=== PATIENT | male | born 1995 | race Caucasian/White ===

== ENCOUNTER 2017-12-21 04:43 | Emergency (ER) | payer BC, SELFPAY ==
[2017-12-21 04:44] VITALS: BP 153/87; PULSE 78; RESP 20; TEMP 36.6; O2SAT 98; BMI 24.5
--- NOTE | 2017-12-21 04:48 | CT_ITS ---
STUDY: CT ABDOMEN AND PELVIS WITH CONTRAST REASON FOR EXAM: Male, 22 years old. Rule out appendicitis. RADIATION DOSAGE (If Supplied By Facility): CTDIvol = ( 7.75 ) mGy, DLP = ( 819.57 ) mGycm TECHNIQUE: Transaxial images were obtained from the dome of the diaphragm to the symphysis pubis with oral contrast. 100 ml of Isovue 300 contrast was administered. Sagittal and coronal images were reconstructed. Individualized dose optimization techniques were used for this CT. COMPARISON: None. FINDINGS: The visualized lung bases are unremarkable. The visualized portions of the heart are within normal limits. Normal liver. Normal gallbladder and extrahepatic biliary system. Normal spleen. Normal pancreas. Normal bilateral adrenal glands. Normal right kidney. Normal left kidney. Normal visualized stomach. Oral contrast has not reached into the distal small intestine and entire colon. Suspect segmental mild wall thickening of the terminal ileum. Moderately large amount of fecal debris is seen in the colon. The appendix is visualized and appears normal. Normal abdominal aorta. Normal inferior vena cava. There are multiple small periaortic and central mesenteric reactive lymph nodes present. Normal urinary bladder. Normal visualized prostate gland. Normal abdominal wall. Normal osseous structures. CT/Abdomen/Pelvis WITH Contrast IMPRESSION: 1. Normal-appearing appendix. No evidence of acute appendicitis. 2. Suspect mild terminal ileitis with wall thickening, in the appropriate clinical context. 3. Increased colonic stool volume. Electronically Signed: Apple Barron MD at 7:38 EDT Tel , Service support ,
--- NOTE | 2017-12-21 04:50 | ED.DCSUM_ITS ---
- ER Visit Summary Date of Service: 12/21/17 Chief Complaint: Abdominal pain History of Present Illness: The patient is a 22 M presents to the emergency department with abdominal pain. The patient's been having intermittent abdominal pain for almost a year. He states that he has had some upper abdominal pain with nausea and vomiting. He has seen his physician thought it may been secondary to anxiety. He was started on sertraline which really has not changed the symptoms. He actually had an outpatient gallbladder ultrasound which was normal. He is scheduled for a HIDA scan next week and have an upper endoscopy. He states that he began to have a different pain at about 1 this morning. He states it was around his bellybutton which is in a different location. He states he woke up and vomited and went back to sleep. He states the pain began to migrate to his right lower quadrant. He states this is very different than what is been dealing with. He denies any fevers but does admit to chills. The last time he ate was last evening. He has had no diarrhea. There was no history of Crohn's disease or ulcerative colitis. He has no prior history of abdominal surgery. Physical Examination: Vital signs reviewed General: Well-nourished, well-developed Head: Normocephalic, atraumatic Eyes: Pupils equal and reactive, extraocular muscles intact Neck, supple, no lymphadenopathy Heart: Regular rate and rhythm Respiratory: No distress, clear bilaterally Abdomen: Soft, tender in the right lower quadrant with voluntary guarding, nondistended, no peritoneal signs Back: Nontender Extremities: Nontender, no edema, no cords Skin: Normal color no rash Neuro: Alert and oriented, no focal or lateralizing deficits Test Results: [] Emergency Department Course and Treatment: Clinically, the patient symptoms are concerning for acute appendicitis. He has had intermittent abdominal pain for year, but states this is different. He has exam findings that are consistent with acute appendicitis. IV is established. Patient is given analgesics, antiemetics, and screening labs are obtained. These are unremarkable. The patient does have improvement of his pain. Patient will undergo CT of the abdomen and pelvis with p.o. and IV contrast. This will be signed out to oncoming physician for reevaluation after completion of workup. Treatment Plan: [] Disposition: Pending Impression: 1. Right lower quadrant abdominal pain This note was generated with Dragon dictation software. It may contain incorrect words, spelling, and punctuation that were not noted in review of the chart prior to signing ED Disposition - Plan for ED Patient: Chief Complaint: Abd Pain Referrals: Ila Cheng, [employer] [Primary Care Provider] -
[2017-12-21] MEDS: Morphine 4 MG/ML Syringe IV (05:04)
[2017-12-21] MEDS: 0.9% Normal Saline 1,000 ML 1000 ML IV (05:04)
[2017-12-21 05:13] LABS: Bacteria 0 SEEN /hpf (None Seen); Mucous, Urine 0 SEEN /hpf (<or=2+); Red Blood Cells-Urine 0 SEEN /hpf (0-5); Squamous Epithelial Cells - UA 0 SEEN /hpf (0-5); White Blood Cells 0 SEEN /hpf (0-5)
[2017-12-21 05:15] LABS: Absolute Lymphocyte Count 2.03 X10^3/ul (0.83-4.51); Absolute Neutrophil Count 3.2 X10^3/uL (2.0-7.7); Basophil# 0.03 X10^3/uL; Basophil% 0.5 % (0-1); Eosinophil# 0.15 X10^3/uL; Eosinophils% 2.5 % (0-5); Hemoglobin 15.7 g/dl (13.0-16.5); Lymphocyte # 2.03 X10^3/ul (4.0); Lymphocyte % 34.1 % (19-41); Mean Corp Hgb Conc 36.5 g/gl (32-36); Mean Corpuscular Hgb 30.8 pg (27.0-32.0); Mean Corpuscular Volume 84.5 fL (80-94); Mean Platelet Vol. 8.2 fl (6.2-12.0); Monocyte# 0.49 X10^3/uL; Monocyte% 8.2 % (0-10); Neutrophil # 3.24 X10^3/uL (2.7-7.7); Neutrophil % 54.4 % (47-70); Platelet Count 205 K/mm3 (150-450); RBC Distribution Width CV 12.5 % (11.6-14.6); RBC Distribution Width SD 38.2 fl (35.1-43.9); Red Blood Count 5.09 M/mm3 (4.6-6.2)
[2017-12-21 05:16] LABS: POSITIVE COUNT NO; POSITIVE DIFFERENTIAL NO; POSITIVE MORPHOLOGY NO
[2017-12-21 05:18] LABS: Color, Urine Yellow (Yellow); Glucose, Dipstick Normal (Normal); Ketone-Dipstick Negative (Negative); Leukocyte Esterase-Dipstick Negative /ul (Negative); Nitrite-Dipstick Negative (Negative); Occult Blood-Urine Negative /ul (Negative); Protein-Dipstick 15 mg/dl (Negative); Urine Bilirubin Dipstick Negative (Negative); Urine Clarity Sl. Cloudy (Clear); Urine Urobilinogen Normal (Normal); Urine pH 6.5 (5.0 - 8.0)
[2017-12-21] MEDS: Ondansetron 4 MG/2 ML Vial IV (05:20)
[2017-12-21 05:31] LABS: Amorphous Sediment 1+
[2017-12-21 05:37] LABS: ALB/GLOB Ratio 1.2 RATIO (0.9-2.4); AST(SGOT) 19 U/L (15-37); Alanine Aminotransfer ALT/SGPT 35 U/L (16-61); Albumin, Serum 4.1 g/dL (3.2-5.0); Alkaline Phosphatase 71 U/L (45-117); Anion Gap 7 (5-15); BUN 14 mg/dL (7-18); BUN/Creat Ratio 14.3 RATIO (10-20); Calcium,Total 9.2 mg/dL (8.5-10.1); Chloride 105 mmol/L (98-107); Creatinine, Serum 0.98 mg/dL (0.70-1.30); EST Glomerular Filtration Rate 103 mL/min (>60); Est Glom Filt Rate - Afr Amer 125 mL/min (>60); Estimated Creatinine Clearance 131.97 ml/min; Globulin 3.5 g/dL (2.2-4.2); Glucose 91 mg/dL (74-106); Lipase 192 U/L (73-393); Potassium 4.1 mmol/L (3.5-5.1); Protein, Total 7.6 g/dL (6.4-8.2); Sodium Level 142 mmol/L (136-145)
[2017-12-21 06:56] VITALS: BP 116/65; PULSE 69; RESP 16; O2SAT 96
[2017-12-21 08:22] VITALS: BP 124/56; PULSE 69; RESP 16; O2SAT 99
--- NOTE | 2017-12-21 08:34 | ED.DEP ---
ED Disposition - Plan for ED Patient: Chief Complaint: Abd Pain Instructions: ED Abdominal Pain Unkn Cause, ED Constipation Referrals: Ila Cheng NP-C [Primary Care Provider] -
[2017-12-21 08:59] VITALS: BP 120/65; PULSE 77; RESP 14; O2SAT 97
== END 2017-12-21 09:01 | disposition home or self-care (01) ==
LOC: ED 05:27
PROVIDERS: Emergency Provider Emergency Medicine; Family Provider Nurse Practitioner Family; PCP Nurse Practitioner Family
DX: R10.31 Right lower quadrant pain (principal); R11.2 Nausea with vomiting, unspecified; R68.83 Chills (without fever); K59.00 Constipation, unspecified; F41.9 Anxiety disorder, unspecified; Z79.899 Other long term (current) drug therapy
CPT/HCPCS: 74177; 80053; 81001; 83690; 85025; 96361; 96374; 96375; 99283; J7030; Q9967; A4216

== ENCOUNTER 2022-12-10 08:58 | Emergency (ER) | payer OTHER, SELFPAY ==
[2022-12-10 09:00] VITALS: BP 152/88; PULSE 100; RESP 18; TEMP 35.9; O2SAT 100; BMI 25.7
[2022-12-10] MEDS: Lidocaine 1% (20 ml mdv) 20 ML Vial 6 ML INFILT (09:23)
[2022-12-10] MEDS: Diphth,Pertuss(Acell),Tet Vac 0.5 ML Vial IM (09:24)
--- NOTE | 2022-12-10 09:24 | EX.ED.UPPERE ---
HPI History of Present Illness Chief Complaint: Laceration Detail of Chief Complaint: Laceration to right wrist Informant: patient Narrative Narrative: Patient presents to the emergency department complaint of laceration to the right wrist that occurred today. Patient states that he was breaking a tile wall with a hammer and his hand slipped through the wall lacerating the wrist on a piece of tile. Patient is right-hand dominant. Patient unsure of his last tetanus shot. PFSH PFSH Home Medications dicyclomine 10 mg capsule 10 mg PO TID 12/21/17 [History Last Taken Unknown] omeprazole 10 mg capsule,delayed release 10 mg PO DAILY 12/21/17 [History Last Taken Unknown] ondansetron HCl 4 mg tablet (Zofran) 4 mg PO Q8H 12/21/17 [History Last Taken Unknown] sertraline 25 mg tablet (Zoloft) 25 mg PO DAILY 12/21/17 [History Last Taken Unknown] Allergy/AdvReac Type Severity Reaction Status Date / Time Penicillins Allergy Other Verified 12/10/22 08:59 Social History Smoking Status: Never smoker ROS ROS ED Review of Systems ROS Unobtainable: other Constitutional Constitutional ED: Reports lethargy; Denies chills, fever(s), sweats or weight loss Eyes Eyes: Denies blurry vision, change in vision or diplopia ENT ENT ED: Denies rhinorrhea or sore throat Cardiovascular Cardiovascular: Denies chest pain, orthopnea or racing heartbeat Respiratory/Chest Respiratory/Chest: Denies cough, dyspnea, dyspnea on exertion, orthopnea or sputum Gastrointestinal Gastrointestinal: Denies abdominal pain, diarrhea, nausea or vomiting Genitourinary Genitourinary ED: Denies dysuria, hematuria or urinary frequency Musculoskeletal Musculoskeletal: Denies arthralgias, back pain, myalgias or neck pain Integumentary Reports other Details: Laceration right wrist ; Denies abscess, Abrasions or rash Neurologic Neurologic: Denies headache(s) or weakness Psychiatric Psychiatric: Denies anxiety, depression or suicidal thoughts Endocrine Endocrinology: Denies polydipsia, polyphagia or polyuria Hematologic/Lymphatic Hematologic/Lymphatic: Denies easy bleeding, easy bruising or lymphadenopathy Allergic/Immunologic Allergic/Immunologic ED: Denies mouth swelling, tongue swelling or urticaria EXAM Physical Exam Const Vital Signs: 12/10/22 09:00 Temperature 96.6 F L Temperature Source Temporal Pulse Rate 100 Respiratory Rate 18 Blood Pressure 152/88 H Blood Pressure Mean 109 Pulse Ox 100 Oxygen Delivery Method Room Air Positive well nourished and well developed General Appearance ED: well developed and NAD HEENT Reports TM's clear and moist mucous membranes normocephalic and atraumatic; Negative for trauma or tenderness Tympanic Membrane ED: Yes TM's clear Eyes PERRL and EOMs intact bilaterally General Eye ED: Negative for pale conjunctiva or scleral icterus Neck no lymphadenopathy, supple and no JVD General: Negative for tenderness Chest Wall inspection of chest normal and palpation of chest normal Chest: Negative for tenderness Resp normal respiratory effort and clear to auscultation bilaterally Effort and Inspection: Negative for respiratory distress or pain with movement Auscultation: Negative for rhonchi, wheezes or diminished lung sounds Cardio regular rate, regular rhythm, S1 normal heart sound, S2 normal heart sound and no murmurs Peripheral Pulses: pulses 2+ throughout GI normal to inspection, nondistended, normoactive bowel sounds, soft to palpation, non-tender, non-distended and no masses Back/Spine no CVA tenderness and no thoracic nor lumbar tenderness Extremity Extremity Narrative: Right wrist-over the volar ulnar aspect of the wrist there is a 3 cm oblique laceration with exposed muscle. There is no evidence of laceration into the muscle. Patient has normal range of motion flexion extension of all digits. He is neurovascular intact. The laceration does not traverse the ulnar artery. General Extremety ED: Negative for edema General Extremity: Negative for edema Neuro oriented x3, CN's II-XII intact bilaterally, no sensory deficits noted and gait normal Sensorium / Orientation: awake, alert, oriented to person, oriented to place and oriented to time Motor Exam: strength 5/5 throughout and strength abnormal Psych mental status grossly normal Skin no rashes or lesions noted and no wounds MDM MDM MDM Narrative Medical decision making narrative: Patient had suture repair of his laceration which she tolerated well. Clean dressing will be applied. Patient advised to follow-up with physician on-call for no doc within next 10 days for suture removal. He is to return if increasing pain, redness,, swelling, purulent drainage, or condition worsening way. Procedures Lacerations Right wrist laceration: Length: 1.18 in Depth: Sub Q Shape: Linear Prep: Sterile Conditions and Shure-Clens Laceration repair: Irrigated, Lidocaine, Local and Skin sutures Irrigated (ml): 50 Number of Sutures/Fence: 6 Suture Information: Ethilon, Simple and 5-0 Discharge Plan Triage Chief Complaint: Laceration ED Provider: Gold Baron Dx/Rx/DC Orders Clinical Impression: Laceration of right wrist Instructions: ED Laceration Extremity Prescriptions: No Action ondansetron HCl [Zofran] 4 MG tablet 4 mg PO Q8H omeprazole 10 MG capsule 10 mg PO DAILY sertraline [Zoloft] 25 MG tablet 25 mg PO DAILY dicyclomine 10 MG capsule 10 mg PO TID Referrals: Bam Davis DO [Med Staff - [employer]] - 10 Day for suture removal Disposition Disposition: Home, Self Care
== END 2022-12-10 09:48 | disposition home or self-care (01) ==
LOC: ED 09:33
PROVIDERS: Emergency Provider Emergency Medicine; Visit Provider Emergency Medicine
DX: S61.511A Laceration without foreign body of right wrist, initial encounter (principal); W26.8XXA Contact with other sharp object(s), not elsewhere classified, initial encounter; Y93.89 Activity, other specified
CPT/HCPCS: 12002; 90715; 99283